=== PATIENT | female | born 1945 | race Caucasian/White ===

== ENCOUNTER 2021-09-17 12:19 | Emergency (ER) | payer MEDICARE ==
[2021-09-17] MEDS ORDERED: Acetaminophen/HYDROcodone 325-5 MG Tab PO ONE (13:54)
== END 2021-09-17 14:33 | disposition home or self-care (01) ==
LOC: JP.ED 12:19
DX: S43.421A Sprain of right rotator cuff capsule, initial encounter (principal); Z79.899 Other long term (current) drug therapy; W22.8XXA Striking against or struck by other objects, initial encounter
CPT/HCPCS: 73030; 73060; 99281; 99283; A9270